=== PATIENT | female | born 1960 | race Caucasian/White ===

== ENCOUNTER 2017-11-13 11:00 | Emergency (ER) | payer BC ==
[~2017-11-13] VITALS: Ht 149.9 cm; Wt 60.2 kg
[2017-11-13 11:03] VITALS: BP 156/93
[2017-11-13] MEDS ORDERED: PRAV40TA2 PO (11:40)
[2017-11-13] MEDS ORDERED: LEVO88TA4 PO (11:40)
== END 2017-11-13 11:53 | disposition home or self-care (01) ==
LOC: ED 11:30
DX: H60.502 Unspecified acute noninfective otitis externa, left ear (principal); E78.5 Hyperlipidemia, unspecified; Z88.0 Allergy status to penicillin
CPT/HCPCS: 99283

== ENCOUNTER → 2017-12-06 | Outpatient (CLI) | payer BC ==
[~2017-12-06] MED LIST: LEVO88TA4 PO; PRAV40TA2 PO
== END | disposition home or self-care (01) ==
LOC: CFH 15:43
PROVIDERS: ATTEND Obstetrics & Gynecology
DX: Z12.31 Encounter for screening mammogram for malignant neoplasm of breast (principal)
CPT/HCPCS: 77063; 77067

== ENCOUNTER → 2019-01-02 | Outpatient (CLI) | payer BC | END | disposition home or self-care (01) | LOC: CFH 16:11 | PROVIDERS: ATTEND Obstetrics & Gynecology | DX: Z12.31 Encounter for screening mammogram for malignant neoplasm of breast (principal) | CPT/HCPCS: 77063; 77067 ==

== ENCOUNTER 2020-03-06 14:52 | Outpatient (CLI) | payer BC | END 2020-03-06 23:59 | disposition home or self-care (01) | LOC: CFH 14:52 | PROVIDERS: ATTEND Obstetrics & Gynecology | DX: Z12.31 Encounter for screening mammogram for malignant neoplasm of breast (principal) | CPT/HCPCS: 77063; 77067 ==

== ENCOUNTER 2020-03-27 13:54 | Outpatient (CLI) | payer BC | END 2020-03-27 23:59 | disposition home or self-care (01) | LOC: CFH 13:54 | PROVIDERS: ATTEND Obstetrics & Gynecology | DX: M85.80 Other specified disorders of bone density and structure, unspecified site (principal); M89.9 Disorder of bone, unspecified | CPT/HCPCS: 77080 ==

== ENCOUNTER → 2021-03-25 | Outpatient (CLI) | payer BC | END | disposition home or self-care (01) | LOC: CFH 10:03 | PROVIDERS: ATTEND Obstetrics & Gynecology | DX: Z12.31 Encounter for screening mammogram for malignant neoplasm of breast (principal) | CPT/HCPCS: 77067 ==